=== PATIENT | male | born 1980 | race Caucasian/White ===

== ENCOUNTER 2017-10-25 12:16 | Emergency (ER) | payer BC ==
[2017-10-25] MEDS ORDERED: Dexamethasone 4 mg/ml Vial ONE (12:33)
[2017-10-25] MEDS ORDERED: Metoclopramide HCl 10 MG/2 ML VIAL ONE (12:34)
[2017-10-25] MEDS ORDERED: Ketorolac Tromethamine 30 MG/ML VIAL ONE (12:34)
[2017-10-25 12:46] LABS: #Basophils 0.1 thou/uL (0.0-0.2); #Eosinphils 0.3 thou/uL (0.0-0.7); #Lymphocytes 2.3 thou/uL (1.20-3.40); #Monocytes 0.7 thou/uL (0.11-0.59); %Basophils 1.7 % (0.0-1.0); %Eosinophils 5.1 % (0.0-10.0); %Monocytes 11.3 % (0.0-10.0); %Neutrophils 45.9 % (42.0-75.0); Hemoglobin 15.7 g/dL (14.0-18.0); Mean Corpuscular HGB CONC 33.3 g/dL (32.0-36.0); Mean Corpuscular Hemoglobin 29.5 pg (27.0-31.0); Mean Corpuscular Volume 88.7 fl (80.0-94.0); Mean Platelet Volume 7.4 fL (7.4-10.4); Platelet Count 274 thou/uL (130-400); Red Blood Cell (RBC) Count 5.33 mill/uL (4.70-6.10); White Blood Cell (WBC) Count 6.5 thou/uL (4.8-10.8)
[2017-10-25 12:59] LABS: ALT (SGPT) 35 U/L (8-55); AST (SGOT) 23 U/L (5-34); Albumin 4.6 g/dL (3.5-5.0); Alkaline Phosphatase 74 U/L (40-150); Anion Gap 14 mmol/L (10-20); BUN (Urea Nitrogen) 9 mg/dL (8.9-20.6); Bilirubin, Total 0.6 mg/dL (0.2-1.2); Calc. Creatinine Clearance 0 mL/min (70-130); Calcium 9.8 mg/dL (7.8-10.44); Carbon Dioxide 26 mmol/L (22-29); Chloride 104 mmol/L (98-107); Estimated GFR-MDRD 81; Globulin 3.3 g/dL (2.4-3.5); Glucose 88 mg/dL (70-105); Potassium 3.7 mmol/L (3.5-5.1); Protein, Total 7.9 g/dL (6.0-8.3); Sodium 140 mmol/L (136-145)
[2017-10-25 13:10] LABS: Prothrombin Time 13.4 SEC (12.0-14.7)
[2017-10-25 13:11] LABS: PTT 29.2 SEC (22.9-36.1)
--- NOTE | 2017-10-25 13:53 | CT ---
BRAIN CT WITHOUT IV CONTRAST: HISTORY: A 37-year-old female with a history of headache, nausea, and vomiting. FINDINGS: No focal mass or midline shift. No intra- or extraaxial hemorrhage. Evidence for sinus mucosal corona ges including the maxillary, ethmoid, and left frontal sinus. IMPRESSION: No acute intracranial process. No mass or bleed. Sinus mucosal changes. POS: [facility]
== END 2017-10-25 13:53 | disposition home or self-care (01) ==
LOC: ERS 12:16
DX: J01.90 Acute sinusitis, unspecified (principal); R51 Headache; G47.30 Sleep apnea, unspecified; F17.210 Nicotine dependence, cigarettes, uncomplicated; Z79.899 Other long term (current) drug therapy
CPT/HCPCS: 70450; 80053; 85025; 85610; 85730; 96374; 96375; J1100; J1885; J2765